=== PATIENT | male | born 1955 | race Caucasian/White ===

== ENCOUNTER 2024-08-05 10:32 | Observation (INO) | payer MEDICARE ==
[2024-07-29 10:39] LABS: BASOPHILS # (AUTO) 0.03 K/uL (0.00-0.20); BASOPHILS % (AUTO) 0.4 % (0.0-5.0); EOSINOPHILS # (AUTO) 0.18 K/uL (0.00-0.70); EOSINOPHILS % (AUTO) 2.4 % (0.0-8.0); HEMATOCRIT 43.6 % (42-54); IMMATURE GRANULOCYTE ABSOLUTE 0.04 K/uL (0-1); LYMPHOCYTES % (AUTO) 13.1 % (21.0-51.0); MEAN CORPUSCULAR HEMOGLOBIN 29.1 pg (27.0-33.0); MEAN CORPUSCULAR HGB CONC 32.3 g/dL (32.0-36.0); MEAN CORPUSCULAR VOLUME 90.1 fL (79-99); MONOCYTES % (AUTO) 13.2 % (3.0-13.0); NEUTROPHILS # (AUTO) 5.3 K/uL (1.8-7.7); NEUTROPHILS % (AUTO) 70.4 % (40.0-77.0); PLATELET COUNT (AUTO) 258 K/uL (130-400); RED BLOOD CELL COUNT(AUTO) 4.84 MIL/uL (4.50-6.20); RED CELL DISTRIBUTION WIDTH 13.3 % (11.0-15.5); WHITE BLOOD COUNT (AUTO) 7.5 K/uL (4.8-10.8)
[2024-07-29 10:51] LABS: INR 0.95 (0.85-1.15); PROTHROMBIN TIME 10.7 SEC (9.6-11.6)
[2024-07-29 10:52] LABS: PARTIAL THROMBOPLASTIN TIME 29.6 SEC (26.3-35.5)
[2024-07-29 10:53] LABS: CREATININE 1.2 mg/dL (0.5-1.3); POTASSIUM 3.7 mmol/L (3.5-5.1)
[2024-07-29 11:16] VITALS: BP 125/61; PULSE 55; RESP 18; TEMP 97.3
--- NOTE | 2024-07-30 09:40 | EKG ---
[facility] Test Date: 2024-07-29 Test Time: 11:22:34 Pat Name: JORDAN TORRES Department[facility] Room: Gender: M Competency Evaluated Nurse Aide: [id number] : 1955 Requested By: ZEINAB DELGADO Order Number: [id number] Reading MD: Galdino James Measurements Intervals [place] Rate: 49 P: 37 IN: 135 QRS: 8 QRSD: 97 T: -10 QT: 407 QTc: 368 Interpretive Statements Sinus bradycardia No previous ECG available for comparison Electronically Signed On 07-30-2024 15:42:31 PUBLICATION DESIGNER by Galdino James Please click the below link to view image of tracing.
--- NOTE | 2024-08-01 09:50 | NUR ---
REPORT REPORTED TO DR DELGADO/PRASANNA PT DOES NOT ACCEPT BLOOD PRODUCTS
--- NOTE | 2024-08-01 14:48 | NUR ---
REPORT REPORTED EKG TO DR MAYBERRY. OK TO PROCEED
[2024-08-05] VITALS (27 sets, daily range): BP systolic 110–142; BP diastolic 55–78; PULSE 50–67; RESP 12–18; TEMP 95.1–98.4; O2SAT 99
[~2024-08-05] VITALS: Ht 172.7 cm; Wt 89.4 kg
[~2024-08-05 10:32] MED LIST: ATEN25TA PO; B COMPLEX PO; CALCIUM/MG/ZINC PO; HYDR25TA PO; MELO-108 PO; MVI PO; VIT D3 PO
[2024-08-05] MEDS: LACTATED RINGERS 1000ML 1,000 ML IV ONE (11:38)
[2024-08-05] MEDS: ceFAZolin SODIUM 2 GM VIAL ONE (11:38)
[2024-08-05] MEDS ORDERED: LIDOCAINE PF 100MG/5ML (2%) SYRINGE 5ML ONE (12:38)
[2024-08-05] MEDS ORDERED: proPOFol 10 MG/ML 20ML VIAL IV ONE (12:38)
[2024-08-05] MEDS ORDERED: rocuRONium bROMide 10MG/1ML 5ML VL ONE (12:39)
[2024-08-05] MEDS ORDERED: FENTanyl CITRate PF 50 MCG/1 ML 2ML VIAL ONE (12:39)
[2024-08-05] MEDS ORDERED: dexaMETHasone SOD PHOSPHATE 10MG/ML 1ML VIAL ONE (12:59)
[2024-08-05] MEDS ORDERED: ondanSETRON 4MG INJ ONE (12:59)
[2024-08-05] MEDS ORDERED: TRANEXAMIC ACID 1000MG/10ML ONE (14:36)
[2024-08-05] MEDS ORDERED: NEOSTIGMINE METHYLSULFATE 1MG/ML IV ONE (14:45)
[2024-08-05] MEDS ORDERED: GLYCOPYRROLATE 0.2 MG/ML 5 ML VIAL ONE (14:45)
[2024-08-05] MEDS: MEPERIDINE-PF 25 MG/ML SYG ONE ×2 (15:56→16:18)
--- NOTE | 2024-08-05 16:03 | OP ---
DATE OF PROCEDURE: 08/05/2024 PREOPERATIVE DIAGNOSIS: Advanced degenerative arthritis of the left knee, no longer amenable to conservative care. POSTOPERATIVE DIAGNOSIS: Advanced degenerative arthritis of the left knee, no longer amenable to conservative care. PROCEDURE PERFORMED: Left total knee arthroplasty using the [employer] system. SURGEON: Huy Simeon DO ANESTHESIA: General by MATTHEW Taylor. CHEMICAL PROCESSING EQUIPMENT REPAIRER: PORFIRIO Lorenzo. ESTIMATED BLOOD LOSS: Less than 200 mL. SPECIMENS: None. COMPLICATIONS: None. TOURNIQUET TIME: 74 minutes at 300 mmHg. INDICATIONS FOR PROCEDURE: This 69-year-old male who 4 years ago did have a right total knee arthroplasty done and has done well. His surgeon is now retired, so he came to see us. Conservative care to include rest, anti-inflammatories, intra-articular injections, activity modification failed to improve his condition. We offered him a total hip arthroplasty, which he accepted. OPERATIVE COURSE: After informed written consent and identification of the correct operative site in preoperative holding area, the patient was taken to the operative suite, placed in supine position. General anesthetic was administered by MATTHEW Taylor and the left lower extremity was prepped and draped in the usual sterile manner using ChloraPrep and Ioban techniques. After a timeout, we made a straight anterior incision over the patella, taken through subcutaneous to the deep fascia. We undermined medially and laterally between the subcutaneous and the deep fascia. We made a paramedial incision in the fascia, reflecting the patella laterally. We removed some of the redundant tissue to include infrapatellar fat pad and ACL and part of the medial meniscus. We also removed some of the subcuticular tissue just above the femur and took it down to the anterior cortex. We then flexed up the knee and placed our distal femoral cutting jig, aligned it and pinned it in place. We then used oscillating saw to do a distal femoral cut. We sized the femur to be a size 7. Chose the size 7 cutting jig that we pinned on the distal femur. We made our anterior, posterior cuts anterior, posterior, chamfer cuts. We then cut in our box by first drilling and then using our box and chisel. A trial was a good fit. Our attention was then directed to the tibia where we removed some more of our redundant tissue to include the posterior aspect of the lateral meniscus, the rest of the ACL. We then placed our external guide and removed 4 mm from the most involved side, which was the medial side. Placed our proximal cutting jig that we pinned in place on the anteromedial aspect of the tibial plateau. We used an oscillating saw. We protected the posterior structures with a PCL retractor and then the patellar ligament with a [place]. We then used an oscillating saw and did a proximal tibial cut. We measured it to be a size 6. Placed a size 6 jig on the tibial plateau, pinned it in place, drilled and keel punched. We then trialled it with an 11 mm spacer that seemed good. This was then all removed. We measured the patella to be 28 mm and removed 9 from the articular side. We chose the 32 mm patellar button and drilled our 3 moeller holes. Once this was completed, we irrigated thoroughly with saline. We then mixed cement and cemented our size 7 femoral component and our size 6 tibial component placing the 11 mm spacer in between and going into full extension after removing excess cement. We then cemented our 32 mm all-polyethylene patellar button removing excess cement. Once cement was adequately hard, we once again retrialed and trialed a 13 mm spacer. This seemed to be a better fit than the 11. We then opened a 13 mm size 6 prosthetic polyethylene spacer and snapped it into the tibial tray. This was run through range of motion and judged to be stable and a good fit. We irrigated again with saline. We let the tourniquet down while the cement was drying. We gave a gram of tranexamic acid. Then after irrigating one final time with all the components in, we closed the fascia with interrupted [id number] #1 Vicryl sutures. We closed subcutaneous with interrupted 2-0 Vicryl sutures and the skin with skin clips. Applied clean, dry sterile dressings to include Xeroform, 4 x 4's, ABD, Kerlix and an Jatin from the toes to the crotch. The drapes were removed, the patient was transferred on hospital bed, revived, and taken to the recovery room in satisfactory condition. All needle counts, sponge counts, instrument counts were correct. TID: [id number] RECEIPT: [id number]
--- NOTE | 2024-08-05 16:35 | HMCIMG ---
KNEE/PATELLA 1-2VWS LT HISTORY: Postop COMPARISON: None TECHNIQUE: 2 images of left knee were obtained. FINDINGS: Postop changes are seen of the left knee. Soft tissue swelling is seen. There is no acute displaced fracture or dislocation. Degenerative changes are seen. IMPRESSION: 1. Findings as described above.
--- NOTE | 2024-08-05 16:40 | NUR ---
PATIENT ARRIVED TO UNIT. NO S/S OF DISTRESS NOTED. PATIENT DENIES PAIN AT THIS TIME.
[2024-08-05] MEDS ORDERED: hydroMORPHone 0.5 MG SYG (0.5MG/0.5ML) IVP PRN (17:30)
[2024-08-05] MEDS ORDERED: HYDROcodone/acetaMINOPHEN 10/325 MG TAB PO PRN (17:30)
[2024-08-05] MEDS ORDERED: ketOROlac 30MG VIAL (30MG/ML) IM PRN (17:30)
[2024-08-05] MEDS: ketOROlac 30MG VIAL (30MG/ML) IVP PRN (18:20)
--- NOTE | 2024-08-05 18:50 | NUR ---
PT eval attempted at this time. Pt is awake and alert with stable vitals. Family at bedside. Pt got out of surgery at [id number] and had a nerve block. At this time no sensation LLE, patient not able to wiggle toes or move leg. Pt given ice, PT education, falls precautions and POC/ DC planning. Pt and requesting rehab due to patient having low compliance and motivation to complete therapy at home. Education on pain management provided. Ice provided. No SCDS or machine in room, no order noted in paper chart for SCDS. Pt has not been OOB at this time with PT due to not being able to sustain weight on leg, pt a fall risk and advised to use urinal. PT to follow in AM
[2024-08-05] MEDS: ceFAZolin SODIUM 2 GM VIAL IVPB SCH (20:27)
[2024-08-05] MEDS: HYDROcodone/APAP 5/325 1 TAB TABLET PO PRN (20:36)
[2024-08-05] MEDS ORDERED: ketOROlac 30MG VIAL (30MG/ML) IVP PRN (23:30)
[2024-08-06 03:45] VITALS: BP 121/56; PULSE 66; RESP 18; TEMP 97.9
[2024-08-06 04:56] LABS: BASOPHILS # (AUTO) 0.01 K/uL (0.00-0.20); BASOPHILS % (AUTO) 0.1 % (0.0-5.0); HEMATOCRIT 35.1 % (42-54); IMMATURE GRANULOCYTE ABSOLUTE 0.05 K/uL (0-1); LYMPHOCYTES # (AUTO) 0.6 K/uL (1.0-4.8); LYMPHOCYTES % (AUTO) 6.1 % (21.0-51.0); MEAN CORPUSCULAR HEMOGLOBIN 28.7 pg (27.0-33.0); MEAN CORPUSCULAR HGB CONC 32.5 g/dL (32.0-36.0); MEAN CORPUSCULAR VOLUME 88.4 fL (79-99); MONOCYTES # (AUTO) 1.2 K/uL (0.1-1.0); MONOCYTES % (AUTO) 12.4 % (3.0-13.0); NEUTROPHILS % (AUTO) 80.9 % (40.0-77.0); PLATELET COUNT (AUTO) 270 K/uL (130-400); RED BLOOD CELL COUNT(AUTO) 3.97 MIL/uL (4.50-6.20); RED CELL DISTRIBUTION WIDTH 12.9 % (11.0-15.5); WHITE BLOOD COUNT (AUTO) 9.9 K/uL (4.8-10.8)
[2024-08-06 05:19] LABS: ALBUMIN 2.3 g/dL (3.5-5.0); BILIRUBIN,TOTAL 0.4 mg/dL (0.2-1.0); CREATININE 1.3 mg/dL (0.5-1.3); POTASSIUM 3.8 mmol/L (3.5-5.1)
[2024-08-06 08:00] VITALS: BP 109/47; PULSE 65; RESP 18; TEMP 99.2; O2SAT 97
[2024-08-06] MEDS: hydroCHLOROthiazide 25 MG TABLET PO SCH (09:08)
[2024-08-06] MEDS: MELOXICAM 7.5 MG TABLET PO SCH (09:10)
[2024-08-06] MEDS: ATENOLOL 25 MG TABLET PO SCH (09:10)
[2024-08-06] MEDS: ENOXAPARIN SODIUM 40 MG/0.4 ML SYRINGE SQ SCH (09:11)
--- NOTE | 2024-08-06 11:00 | NUR ---
[facility] CM MET WITH PT AND SPOUSE THIS MORNING ASSESSMENT DONE. PATIENT IS INDEPENDENT PRIOR TO SURGERY, LIVES AT HOME WITH . DENIES ANY EQUIPMENT/SERVICES. FEELS SAFE TO GO BACK HOME, STILL DRIVE, SPOUSE ABLE TO ASSIST WITH TRANSPORTATION AND NEEDS NECESSARY. DISCUSSED HOME W/HH & DME VS SHORT TERM REHAB, PT REQUESTING REHAB AT [facility]. INFORMED PT THIS CM CANNOT GUARANTEE APPROVAL FOR IRU, MIGHT NEED SNF LEVEL CARE OR HOME W/HH. PT STATE HE WOULD LIKE TO TRY STR FIRST, IF UNABLE THEN WILL AGREE FOR HOME W/HOME HEALTH THAT [facility]IM[facility]E [facility] PT WORK'S WITH AND [facility], CONSENT SIGNED VI. [facility] ONCE PT HAS ACCEPTANCE VS HH&DME. CM SENT ORDER, CLINICALS TO [facility] VIA SECURE FAX AND EMAIL, CONFIRMATION RECEIVED. CM SPOKE TO [facility], MADE AWARE OF NEW REFERRAL, INFORMED REP PENDING PT EVAL TO BE DONE TODAY, CM TO SEND NOTES ONCE AVAILABLE. REP WILL COME EVALUATE PT. PT PENDING ACCEPTANCE. MOT SEMI-FILLED OUT, PENDING TO COMPLETE ONCE PT RECEIVED ACCEPTANCE. EMS ARRANGED AND FAXED FOR TODAY IN CASE. PRIMARY NURSE LEFTY AWARE. DR DELGADO UPDATED. CM TO CONTINUE TO FOLLOW UP. Addendum: 08/06/24 at 1156 by OLGA PASCUAL LVN Amended: Links added.
[2024-08-06 11:54] VITALS: BP 128/56; PULSE 60; RESP 18; TEMP 97.9
--- NOTE | 2024-08-06 12:47 | NUR ---
PT eval completed. Pt refuses ice, premedication. Pt not compliant with walker, stands and attempts to walk to RR without PT or walker. Pt instructed to use walker in case knee sariah, he states " it wont buckle". PT assisted patient to RR. Pt able to ambulate and complete exercises. Refuses to stay in chair at this time " I've been sitting alot". PT will return in one hour to attempt another transfer/ gait with patient. At this time patient states he will take a " non narcotic,and that he only takes narcotics at night" He reports that he has been trying to contact MD for alternative pain meds. Pt back to bed with fall alarm on and call king in reach. No ice per request. Pt reports that he is going to STR because his can not be home with him. Pt education about POC/ DC plan completed. Pt education regarding fall precautions, use of walker and calling for help completed. Pt concerns addressed regarding late visit this am, out of bed at 6am with nursing, 6 am pain medications, PT scheduling and expectations. Pt denies other concerns at this time. This information communicated with Marysol via text.
--- NOTE | 2024-08-06 13:53 | NUR ---
PT seen for second session, needs max cues for compliance. Has been medicated according to nurse. Pt up to chair at this time due to interview with STR admissions person.
--- NOTE | 2024-08-06 15:46 | NUR ---
CM NOTE: STR ACCEPTANCE CM SPOKE TO PATRICK W/STR, PT HAS ACCEPTANCE. MOT FILLED, PENDING AND OLEGARIO DURBIN TO SIGN. OLEGARIO DURBIN MADE AWARE. EMS ARRANGED AND FAXED FOR TODAY, PRIMARY NURSE TO CALL [facility] ONCE READY TO DC. PRIMARY NURSE MADE AWARE. DR DELGADO UPDATED, PER OKAY TO DC F/U SCHEDULED IN 2-3WKS, WEIGHT BEARING TOLERATED, ORDER ENTERED. CM TO CONTINUE TO FOLLOW UP. Addendum: 08/06/24 at 1548 by OLGA PASCUAL LVN CM Amended: Links added.
[2024-08-06] MEDS: HYDROcodone/acetaMINOPHEN 10/325 MG TAB PO PRN (16:54)
--- NOTE | 2024-08-06 16:55 | NUR ---
D/C PAPERWORK REVIEWED WITH PATIENT. REPORT CALLED TO [place] AT [facility]. EMS CALLED FOR TRANSPORT.
== END 2024-08-06 17:30 ==
LOC: DAH 10:32 → DAHIP 10:33 → 4CH 16:40
PROVIDERS: ADMIT Orthopaedic Surgery Orthopaedic Surgery of the Spine; ATTEND Orthopaedic Surgery Orthopaedic Surgery of the Spine
DX: M17.12 Unilateral primary osteoarthritis, left knee (principal); Z20.822 Contact with and (suspected) exposure to COVID-19; G89.18 Other acute postprocedural pain; I10 Essential (primary) hypertension; Z86.718 Personal history of other venous thrombosis and embolism; Z87.891 Personal history of nicotine dependence; Z96.649 Presence of unspecified artificial hip joint; Z96.651 Presence of right artificial knee joint; Z79.899 Other long term (current) drug therapy
CPT/HCPCS: 80048; 85025 ×2; 85610; 85730; 86850; 86900; 86901; 87426; 36415 ×2; 93005; 87641; 64445; 27447; 96365; 96375; 73560; 96376; 96372; 96366; 80053; 97161; 97116 ×2; 97530 ×6; A6260; G0378 ×23; A4223 ×2; A4663; J7120; J3010; J3490 ×3; J1100; J2003; J2704; J2405; J1885 ×3; J2710; J2175 ×2; J0690 ×3; A4649 ×2; C1713; C1776; A5120; A4215 ×2; A4222; A4221; A4216; J1650